=== PATIENT | female | born 1975 | race Caucasian/White ===

== ENCOUNTER 2017-11-17 08:39 | Inpatient (IN) | payer BC ==
[~2017-11-17] VITALS: Ht 172.7 cm; Wt 112.6 kg
[2017-11-17] MEDS ORDERED: IV NORMAL SALINE 1,000ML 1,000 ML IV SCH (08:54)
[2017-11-17 09:30] LABS: BASO % 0 % (0-3); EOS # 0.2 x10^3/uL (0.0-0.7); EOS % 1 % (0-3); HEMATOCRIT 45.6 % (36.0-47.0); HEMOGLOBIN 15.6 g/dL (12.0-15.5); LYMPH # 1.5 x10^3/uL (1.0-4.8); LYMPH % 8 % (24-48); MEAN CORPUSCULAR HEMOGLOBIN 31 pg (25-35); MEAN CORPUSCULAR HGB CONC 34 g/dL (31-37); MEAN CORPUSCULAR VOLUME 91 fL (79-100); MONO # 1.2 x10^3/uL (0.0-1.1); MONO % 7 % (0-9); NEUT # 14.7 x10^3uL (1.8-7.7); NEUT % 83 % (31-73); PLATELET COUNT 269 x10^3/uL (140-400); RED BLOOD COUNT 5.01 x10^6/uL (3.50-5.40); RED CELL DISTRIBUTION WIDTH 12.3 % (11.5-14.5); WHITE BLOOD COUNT 17.6 x10^3/uL (4.0-11.0)
[2017-11-17] MEDS ORDERED: ONDANSETRON PF 4 MG/2 ML VIAL. IV ONE (09:30)
[2017-11-17 09:44] LABS: ALBUMIN 3.9 g/dL (3.4-5.0); ALBUMIN/GLOBULIN RATIO 0.8 (1.0-1.7); CALCIUM 9.8 mg/dL (8.5-10.1); GFR 61.4; POTASSIUM 3.5 mmol/L (3.5-5.1); TOTAL BILIRUBIN 0.7 mg/dL (0.2-1.0); TOTAL PROTEIN 8.5 g/dL (6.4-8.2)
--- NOTE | 2017-11-17 10:13 | PHYS DOC ---
Past History Past Medical History: Anxiety, Depression Past Surgical History: Other Smoking: Non-smoker Alcohol Use: None Drug Use: None Adult General Chief Complaint Chief Complaint: ABDOMINAL PAIN HPI HPI 42-year-old female patient presents with complaining of left upper quadrant pain and nausea and vomiting. Patient complaining of intermittent episodes of nausea for the last 4 days and left upper quadrant sharp pain and generalized abdominal cramping pain since yesterday with 6 episodes of vomiting. Patient denies fever, diarrhea, urinary symptom except for decrease of urine output. Patient is currently taking IVF without taking any medication currently. Patient was changed from Zoloft to Prozac 1 week ago and has change of her job with increasing of anxiety. Patient denies fever, sick contact, chest pain and shortness of breath. Her LMP was 4 days ago. Review of Systems Review of Systems Constitutional: Denies fever or chills [] Eyes: Denies change in visual acuity, redness, or eye pain [] HENT: Denies nasal congestion or sore throat [] Respiratory: Denies cough or shortness of breath [] Cardiovascular: No additional information not addressed in HPI [] GI: Reports abdominal pain, nausea, vomiting, denies bloody stools or diarrhea [ ] : Denies dysuria or hematuria [] Musculoskeletal: Denies back pain or joint pain [] Integument: Denies rash or skin lesions [] Neurologic: Denies headache, focal weakness or sensory changes [] Endocrine: Denies polyuria or polydipsia [] All other systems were reviewed and found to be within normal limits, except as documented in this note. Current Medications Current Medications Current Medications Medications (Trade) Dose Ordered Sig/Kassie Start Time Stop Time Status Last Admin Dose Admin Fentanyl Citrate (Fentanyl 2ml Vial) 50 mcg 1X ONCE 11/17/17 09:45 11/17/17 09:46 DC 11/17/17 10:02 50 MCG Ondansetron HCl (Zofran) 4 mg 1X ONCE 11/17/17 09:30 11/17/17 09:31 DC 11/17/17 09:27 4 MG Sodium Chloride 1,000 ml @ 1,000 mls/hr Q1H 11/17/17 08:54 11/17/17 09:53 DC 11/17/17 09:28 1,000 MLS/HR Allergies Allergies Allergies Coded Allergies Type Severity Reaction Last Updated Verified Sulfa (Sulfonamide Antibiotics) Allergy Unknown 11/17/17 Yes aspirin Allergy Unknown 11/17/17 Yes Physical Exam Physical Exam Constitutional: Well developed, well nourished, mild distress, non-toxic appearance. [] HENT: Normocephalic, atraumatic, oropharynx dry, no oral exudates, nose normal. [] Eyes: PERRLA, EOMI, conjunctiva normal, no discharge. [] Neck: Normal range of motion, no tenderness, supple, no stridor. [] Cardiovascular:Heart rate regular rhythm, no murmur [] Lungs & Thorax: Bilateral breath sounds clear to auscultation [] Abdomen: Bowel sounds normal, soft, left upper quadrant guarding without tenderness, no masses, no pulsatile masses. [] Skin: Warm, dry, no erythema, no rash. [] Back: No tenderness, no CVA tenderness. [] Extremities: No tenderness, no cyanosis, no clubbing, ROM intact, no edema. [] Neurologic: Alert and oriented X 3, normal motor function, normal sensory function, no focal deficits noted. [] Psychologic: Affect normal, judgement normal, mood normal. [] Current Patient Data Vital Signs Vital Signs Date Time Temp Pulse Resp B/P (MAP) Pulse Ox O2 Delivery O2 Flow Rate FiO2 11/17/17 10:02 Room Air 11/17/17 08:51 98.3 76 18 98 Lab Results Laboratory Tests Test 11/17/17 09:10 White Blood Count 17.6 x10^3/uL (4.0-11.0) H Red Blood Count 5.01 x10^6/uL (3.50-5.40) Hemoglobin 15.6 g/dL (12.0-15.5) H Hematocrit 45.6 % (36.0-47.0) Mean Corpuscular Volume 91 fL (79-100) Mean Corpuscular Hemoglobin 31 pg (25-35) Mean Corpuscular Hemoglobin Concent 34 g/dL (31-37) Red Cell Distribution Width 12.3 % (11.5-14.5) Platelet Count 269 x10^3/uL (140-400) Neutrophils (%) (Auto) 83 % (31-73) H Lymphocytes (%) (Auto) 8 % (24-48) L Monocytes (%) (Auto) 7 % (0-9) Eosinophils (%) (Auto) 1 % (0-3) Basophils (%) (Auto) 0 % (0-3) Neutrophils # (Auto) 14.7 x10^3uL (1.8-7.7) H Lymphocytes # (Auto) 1.5 x10^3/uL (1.0-4.8) Monocytes # (Auto) 1.2 x10^3/uL (0.0-1.1) H Eosinophils # (Auto) 0.2 x10^3/uL (0.0-0.7) Basophils # (Auto) 0.0 x10^3/uL (0.0-0.2) Platelet Estimate Pending Sodium Level 138 mmol/L (136-145) Potassium Level 3.5 mmol/L (3.5-5.1) Chloride Level 101 mmol/L (98-107) Carbon Dioxide Level 23 mmol/L (21-32) Anion Gap 14 (6-14) Blood Urea Nitrogen 9 mg/dL (7-20) Creatinine 1.0 mg/dL (0.6-1.0) Estimated GFR (Cockcroft-Gault) 61.4 BUN/Creatinine Ratio 9 (6-20) Glucose Level 127 mg/dL (70-99) H Calcium Level 9.8 mg/dL (8.5-10.1) Total Bilirubin 0.7 mg/dL (0.2-1.0) Aspartate Amino Transferase (AST) 25 U/L (15-37) Alanine Aminotransferase (ALT) 34 U/L (14-59) Alkaline Phosphatase 68 U/L (46-116) Total Protein 8.5 g/dL (6.4-8.2) H Albumin 3.9 g/dL (3.4-5.0) Albumin/Globulin Ratio 0.8 (1.0-1.7) L Lipase 851 U/L (73-393) H EKG EKG [] Radiology/Procedures Radiology/Procedures [][address] [address] IMAGING REPORT Signed PATIENT: YASHIRA GUPTA ACCOUNT: [id number] : 1975 LOCATION: ER AGE: 42 SEX: F EXAM STATUS: REG ER ORD. PHYSICIAN: MANOLO DENNIS MD REASON: left upper quadrant pain, spleenic hemorrhage? PROCEDURE: ABDOMEN LTD ABDOMEN LTD Clinical Indication: er doc note ? splenic hemorrhage LUQ pain x's 1 day Comparison: None. TECHNIQUE: Real-time ultrasound imaging of the left upper quadrant of the abdomen is performed. Findings: No free fluid is identified in the left upper quadrant. The spleen measures 11 cm in length, normal. Sonographic sensitivity for detection of trauma is limited. Left kidney length is 10.8 cm. The appearance is normal. No hydronephrosis. IMPRESSION: 1. Spleen size is normal. 2. No hydronephrosis. 3. There is no left upper quadrant free fluid. Electronically signed by: Soto Boland MD (11/17/2017 10:46 AM) [id number] DICTATED AND SIGNED BY: SOTO BOLAND MD DATE: 11/17/17 1041 CC: AMADA LOMAS MD; MANOLO DENNIS MD ~ [place] [address] IMAGING REPORT Signed PATIENT: YASHIRA GUPTA ACCOUNT: [id number] : 1975 LOCATION: ER AGE: 42 SEX: F EXAM STATUS: REG ER ORD. PHYSICIAN: MANOLO DENNIS MD REASON: left upper quadrant and flank pain PROCEDURE: CT ABD PELV W/ IV CONTRST ONLY CT Abdomen and Pelvis With Intravenous Contrast: History: Left upper quadrant pain since previous day. Comparison: None. Technique: After administration of intravenous contrast, 75 mL Omnipaque-300, CT of the abdomen and pelvis was performed. Exposure: One or more of the following individualized dose reduction techniques were utilized for this examination: 1. Automated exposure control 2. Adjustment of the mA and/or kV according to patient size 3. Use of iterative reconstruction technique Findings: Evaluation of enteric structures may be limited by lack of oral contrast. Fatty liver disease is seen. Spleen and bilateral adrenal glands unremarkable. Cholelithiasis is seen. No CT evidence of cholecystitis is identified. Bilateral kidneys are symmetrically. Minimal fat-containing umbilical hernia is seen. No bowel obstruction or inflammation is identified. The appendix is without inflammation. No free air is seen in the abdomen or pelvis. Urinary bladder is unremarkable. Uterus has unremarkable appearance. Variant vascular anatomy is seen with the splenic and hepatic arteries having separate ostia from the aorta. There is inflammatory change involving the tail of the pancreas, compatible with acute pancreatitis. The splenic vein is patent. No pancreatic necrosis or well-formed peripancreatic fluid collections are identified. Impression: 1. Acute tail pancreatitis. 2. Cholelithiasis without CT evidence of cholecystitis. Electronically signed by: Polo Strange MD (11/17/2017 12:07 PM) [place] [id number] DICTATED AND SIGNED BY: POLO STRANGE MD DATE: 11/17/17 1202 CC: AMADA LOMAS MD; MANOLO DENNIS MD ~ Course & Med Decision Making Course & Med Decision Making Pertinent Labs and Imaging studies reviewed. (See chart for details) Evaluation of patient in ER showed 42-year-old female patient with complaining of nausea for 4 days and left upper quadrant and left flank pain with nausea and vomiting since yesterday. Patient had leukocytosis related lipase at 851. CT abdomen and pelvis showed pancreatitis in tail of pancreas with cholelithiasis. Dr. Ling was informed at 1245 and agreed with plan of admitting the patient with diagnosis of acute pancreatitis. Patient required several doses of fentanyl while she was in ER. Dragon Disclaimer Dragon Disclaimer This electronic medical record was generated, in whole or in part, using a voice recognition dictation system. Departure Departure: Impression: Primary Impression: Acute pancreatitis Additional Impressions: Cholelithiasis Left upper quadrant pain Disposition: ADMITTED INPATIENT (at 1235) Admitting Physician: Other (Dr Ling) Condition: IMPROVED Referrals: AMADA LOMAS MD (PCP) Problem Qualifiers MANOLO DENNIS MD Nov 17, 2017 10:13
--- NOTE | 2017-11-17 10:50 | RAD ---
ABDOMEN LTD Clinical Indication: er doc note ? splenic hemorrhage LUQ pain x's 1 day Comparison: None. TECHNIQUE: Real-time ultrasound imaging of the left upper quadrant of the abdomen is performed. Findings: No free fluid is identified in the left upper quadrant. The spleen measures 11 cm in length, normal. Sonographic sensitivity for detection of trauma is limited. Left kidney length is 10.8 cm. The appearance is normal. No hydronephrosis. IMPRESSION: 1. Spleen size is normal. 2. No hydronephrosis. 3. There is no left upper quadrant free fluid. Electronically signed by: Soto Boland MD (11/17/2017 10:46 AM) [id number]
[2017-11-17 10:52] LABS: % EOS 1 % (0-5); % LYMPHS 9 % (24-48); % MONOS 5 % (0-10); % SEGS 83 % (35-66); PLT ESTIMATE ADEQUATE (ADEQUATE); TOXIC GRANULATION SLIGHT; TOXIC VACUOLATION SLIGHT
[2017-11-17 11:42] LABS: BACTERIA,URINE 0 /HPF (0-FEW); BILIRUBIN,URINE NEG (NEG); CLARITY,URINE HAZY; COLOR,URINE AMBER; GLUCOSE,URINE NEG (NEG); NITRITE,URINE NEG (NEG); RBC,URINE 20-40 /HPF (0-2); SQUAMOUS EPITHELIAL CELL,UR FEW /LPF; UROBILINOGEN,URINE 0.2 mg/dL (0.2 mg/dL); WBC,URINE 0 /HPF (0-4)
[2017-11-17] MEDS ORDERED: IOHEXOL 300 MG/ML 75 ML VIAL. IV ONE (12:00)
--- NOTE | 2017-11-17 12:11 | RAD ---
CT Abdomen and Pelvis With Intravenous Contrast: History: Left upper quadrant pain since previous day. Comparison: None. Technique: After administration of intravenous contrast, 75 mL Omnipaque-300, CT of the abdomen and pelvis was performed. Exposure: One or more of the following individualized dose reduction techniques were utilized for this examination: 1. Automated exposure control 2. Adjustment of the mA and/or kV according to patient size 3. Use of iterative reconstruction technique Findings: Evaluation of enteric structures may be limited by lack of oral contrast. Fatty liver disease is seen. Spleen and bilateral adrenal glands unremarkable. Cholelithiasis is seen. No CT evidence of cholecystitis is identified. Bilateral kidneys are symmetrically. Minimal fat-containing umbilical hernia is seen. No bowel obstruction or inflammation is identified. The appendix is without inflammation. No free air is seen in the abdomen or pelvis. Urinary bladder is unremarkable. Uterus has unremarkable appearance. Variant vascular anatomy is seen with the splenic and hepatic arteries having separate ostia from the aorta. There is inflammatory change involving the tail of the pancreas, compatible with acute pancreatitis. The splenic vein is patent. No pancreatic necrosis or well-formed peripancreatic fluid collections are identified. Impression: 1. Acute tail pancreatitis. 2. Cholelithiasis without CT evidence of cholecystitis. Electronically signed by: Polo Gaytan MD (11/17/2017 12:07 PM) [place] [id number]
[2017-11-17] MEDS ORDERED: ONDANSETRON PF 4 MG/2 ML VIAL. IV PRN (12:45)
[2017-11-17 14:16] VITALS: BP 155/94
[2017-11-17] MEDS: HYDROmorphone PF 1 MG/ML DISP.SYRIN IVP PRN ×4 (14:29→22:31)
[2017-11-17] MEDS: IV NORMAL SALINE 1,000ML 1,000 ML IV SCH ×2 (15:23→19:59)
[2017-11-17] MEDS ORDERED: CRAN1CAP PO (18:01)
[2017-11-17] MEDS ORDERED: LAMO25TA5 PO (18:01)
[2017-11-17] MEDS ORDERED: ALBU2.5V14 NEB (18:01)
[2017-11-17] MEDS ORDERED: CALC-98 PO (18:01)
[2017-11-17] MEDS ORDERED: ALBU8.5H8 INH (18:01)
[2017-11-17] MEDS ORDERED: SPIR100T4 PO (18:01)
[2017-11-17] MEDS ORDERED: FLUT1BLS IH (18:01)
[2017-11-17] MEDS ORDERED: LEVO50TA5 PO (18:01)
[2017-11-17] MEDS ORDERED: LORA10TA3 PO (18:01)
[2017-11-17] MEDS ORDERED: PNV1TABL25 PO (18:01)
[2017-11-17] MEDS ORDERED: BIOT300T PO (18:01)
[2017-11-17] MEDS ORDERED: FLUT9.9S NS (18:01)
[2017-11-17] MEDS ORDERED: FLUO40CA9 PO (18:01)
[2017-11-17] MEDS ORDERED: MONT10TA6 PO (18:01)
[2017-11-17 18:43] VITALS: BP 150/93
[2017-11-17] MEDS ORDERED: ACETAMINOPHEN 500 MG TABLET PO PRN (20:30)
[2017-11-17] MEDS ORDERED: ACETAMINOPHEN 325 MG TABLET PO PRN (20:30)
[2017-11-17 22:07] VITALS: BP 148/79
[2017-11-18] MEDS: HYDROmorphone PF 1 MG/ML DISP.SYRIN IVP PRN ×4 (00:35→06:49)
[2017-11-18] MEDS: IV NORMAL SALINE 1,000ML 1,000 ML IV SCH ×2 (02:32→10:48)
[2017-11-18 05:10] VITALS: BP 166/97
[2017-11-18] MEDS ORDERED: NITROGLYCERIN OINT 1 GM PACKET. TP ONE (05:30)
--- NOTE | 2017-11-18 05:38 | EKG ---
[address] [address] Test Date: 2017-11-18 Test Time: 05:34:16 Pat Name: YASHIRA GUPTA Department: Room: 121 A Gender: F Medical Office Administrator: : 1975 Requested By: EVELINA CERNA Order Number: [id number] Reading MD: Jermain Ceballos MD Measurements Intervals [place] Rate: 91 P: 13 TX: 136 QRS: 55 QRSD: 80 T: 39 QT: 356 QTc: 440 Interpretive Statements SINUS RHYTHM Electronically Signed On 11-20-2017 10:38:16 CDT by Jermain Ceballos MD
[2017-11-18 06:30] LABS: BASO # 0.1 x10^3/uL (0.0-0.2); BASO % 0 % (0-3); EOS # 0.3 x10^3/uL (0.0-0.7); EOS % 1 % (0-3); HEMATOCRIT 41.7 % (36.0-47.0); HEMOGLOBIN 14.4 g/dL (12.0-15.5); LYMPH # 1.2 x10^3/uL (1.0-4.8); LYMPH % 6 % (24-48); MEAN CORPUSCULAR HEMOGLOBIN 31 pg (25-35); MEAN CORPUSCULAR HGB CONC 35 g/dL (31-37); MEAN CORPUSCULAR VOLUME 91 fL (79-100); MONO # 1.8 x10^3/uL (0.0-1.1); MONO % 8 % (0-9); NEUT # 19.3 x10^3uL (1.8-7.7); NEUT % 85 % (31-73); PLATELET COUNT 233 x10^3/uL (140-400); RED CELL DISTRIBUTION WIDTH 12.3 % (11.5-14.5); WHITE BLOOD COUNT 22.7 x10^3/uL (4.0-11.0)
[2017-11-18 07:15] LABS: ALBUMIN 3.4 g/dL (3.4-5.0); ALBUMIN/GLOBULIN RATIO 0.9 (1.0-1.7); CALCIUM 8.7 mg/dL (8.5-10.1); CREATININE 0.8 mg/dL (0.6-1.0); GFR 79.4; POTASSIUM 3.9 mmol/L (3.5-5.1); TOTAL BILIRUBIN 0.7 mg/dL (0.2-1.0); TOTAL PROTEIN 7.1 g/dL (6.4-8.2)
[2017-11-18] MEDS: FLUoxetine HCL 20 MG CAPSULE PO SCH (08:55)
[2017-11-18 10:36] VITALS: BP 141/79
[2017-11-18] MEDS: HYDROmorphone PF 1 MG/ML DISP.SYRIN IV PRN ×2 (10:48→12:57)
--- NOTE | 2017-11-18 11:30 | PDOC1 ---
History of Present Illness History of Present Illness Patient is a 42-year-old female who came to the emergency department complaining of abdominal pain. Patient states that for the past 4 days she's had intermittent nausea and fairly constant left upper quadrant pain. The pain increased in severity prior to ED evaluation patient rated it 8 out of 10 achy, she has 6 episodes of nonbloody emesis and a few loose watery stools. She denied any travel or bad food exposure, no fever chills or myalgias. No symptoms with urination and no chest pain or trouble breathing. She sees a fertility specialist at and is on fertility medications, she was also changed from Zoloft to Prozac one week ago. Her white blood cell count in the emergency department was 17.6 on the day of evaluation it had increased to 22.7. Amylase was 127 in the emergency department improved to 54 today, lipase 851 improved to 224. She developed a spread of her left sided abdominal pain up into the left side of her chest in the night and to be on the safe side and EKG and cardiac enzymes were ordered. EKG revealed no acute ischemic changes, and as of this dictation cardiac enzymes are negative 2. Left upper quadrant ultrasound revealed no acute findings, CT of the abdomen and pelvis with IV contrast revealed 1. Acute tail pancreatitis. 2. Cholelithiasis without CT evidence of cholecystitis. She was admitted to the medical floor for pain control, IV fluids, and bowel rest. On evaluation today her labs had improved as above. She's sitting up in the bed talking with her mom and spouse and appears to be in no apparent distress. She says that the left upper quadrant and left-sided chest discomfort is still present and that the pain medications (Dilaudid 0.4 mg IV every 2 hours when necessary) work for about an hour and then her pain symptoms return. Currently she is rating it at its worst 5/10. She denies any new or worsening symptoms and is expressing hunger. She is ambulatory and very anxious how this hospitalization might affect her in vitro fertilization plan for December 08. Past medical history: Anxiety, depression, infertility Past surgical history: Negative Social history: Lives at home with her spouse no children, denies alcohol tobacco or illicit use Chief Complaint: ABDOMINAL PAIN Allergies: Coded Allergies: Sulfa (Sulfonamide Antibiotics) (Verified Allergy, Unknown, 11/17/17) aspirin (Verified Allergy, Unknown, 11/17/17) Review of Systems Review Of Systems Fourteen system , review of systems has been reviewed. See HPI for pertinent positives and negative responses, other love all other systems are negative, non pertinent or non contributory Medications Current Medications Sodium Chloride 1,000 ml @ 1,000 mls/hr Q1H IV Last administered on 11/17/17 09:28; Start 11/17/17 at 08:54; Stop 11/17/17 at 09:53; Status DC Ondansetron HCl (Zofran) 4 mg 1X ONCE IV Last administered on 11/17/17at 09:27 ; Start 11/17/17 at 09:30; Stop 11/17/17 at 09:31; Status DC Fentanyl Citrate (Fentanyl 2ml Vial) 50 mcg 1X ONCE IV Last administered on at 10:02; Start 11/17/17 at 09:45; Stop 11/17/17 at 09:46; Status DC Iohexol (Omnipaque 300 Mg/ml) 75 ml 1X ONCE IV Last administered on 11/17/17at 11:47; Start 11/17/17 at 12:00; Stop 11/17/17 at 12:01; Status DC Fentanyl Citrate (Fentanyl 2ml Vial) 50 mcg 1X ONCE IV Last administered on at 11:53; Start 11/17/17 at 12:00; Stop 11/17/17 at 12:01; Status DC Ondansetron HCl (Zofran) 4 mg PRN Q4HRS PRN IV NAUSEA/VOMITING; Start 11/17/17 at 12:45; Stop 11/18/17 at 12:44 Sodium Chloride 1,000 ml @ 150 mls/hr Q6H40M IV Last administered on at 10:48; Start 11/17/17 at 12:35; Stop 11/18/17 at 12:34 Fentanyl Citrate (Fentanyl 2ml Vial) 50 mcg 1X ONCE IV ; Start 11/17/17 at 13: 00; Stop 11/17/17 at 13:43; Status DC Hydromorphone HCl (Dilaudid) 0.4 mg PRN Q4HRS PRN IVP PAIN Last administered on 11/17/17at 18:30; Start 11/17/17 at 14:30; Stop 11/17/17 at 19:31; Status DC Fluoxetine HCl (PROzac) 40 mg DAILY PO Last administered on 11/18/17at 08:55; Start 11/18/17 at 09:00 Hydromorphone HCl (Dilaudid) 0.4 mg PRN Q2HR PRN IVP PAIN Last administered on 11/18/17at 06:49; Start 11/17/17 at 19:45; Stop 11/18/17 at 10:27; Status DC Acetaminophen (Tylenol) 650 mg PRN Q6HRS PRN PO PAIN / TEMP; Start 11/17/17 at 20:30; Stop 11/17/17 at 20:30; Status DC Acetaminophen (Tylenol) 650 mg PRN Q6HRS PRN PO PAIN / TEMP; Start 11/17/17 at 20:30 Nitroglycerin (Nitro-Bid Oint) 0.5 inch 1X ONCE TP Last administered on at 05:07; Start 11/18/17 at 05:30; Stop 11/18/17 at 05:31; Status DC Hydromorphone HCl (Dilaudid) 1 mg PRN Q2HR PRN IV PAIN Last administered on at 10:48; Start 11/18/17 at 10:30 Active Scripts Active Reported Breo Ellipta 200-25 Mcg INH (Fluticasone/Vilanterol) 1 Each Blst.w.dev 1 Puff IH DAILY Tablet (Pnv Cmb#95/Ferrous Fumarate/Fa) 1 Each Tablet 1 Tab PO DAILY Spironolactone 100 Mg Tablet 1 Tab PO DAILY Proair Hfa Inhaler (Albuterol Sulfate) 8.5 Gm Hfa.aer.ad 1 Puff INH PRN Q6HRS PRN Singulair Tablet (Montelukast Sodium) 10 Mg Tablet 10 Mg PO HS Loratadine 10 Mg Tablet 1 Tab PO DAILY Levothyroxine Sodium 50 Mcg Tablet 1 Tab PO DAILY Lamictal (Lamotrigine) 25 Mg Tablet 2 Tab PO DAILY Flonase Allergy Relief (Fluticasone Propionate) 9.9 Ml [place].susp 2 Sprays NS DAILY Cranberry Concentrate Softgel (Cranberry Conc/Ascorbic Acid) 1 Each Capsule 1 Each PO DAILY Calcium + Vitamin D Tablet (Calcium Carbonate/Vitamin D3) 1 Each Tablet 1 Each PO DAILY Biotin 300 Mcg Tablet 500 Mcg PO DAILY Albuterol Sulfate Conc Neb Soln (Albuterol Sulfate) 2.5 Mg/0.5 Ml Vial.neb 1 Vial NEB Q6HRS Prozac (Fluoxetine Hcl) 40 Mg Capsule 1 Cap PO DAILY Exam Vital Signs Vital Signs Date Time Temp Pulse Resp B/P (MAP) Pulse Ox O2 Delivery O2 Flow Rate FiO2 11/18/17 10:48 20 95 Room Air 11/18/17 10:36 98.8 89 141/79 (99) General Appearance: Alert, Oriented X3, No acute distress HEENT: Atraumatic, PERRLA, EOMI, Mucous membr. moist/pink Respiratory: Clear to auscultation, Normal air movement Heart: Normal S1, Normal S2, No murmurs Abdominal: Normal bowel sounds, Soft (nondistended, left upper quadrant tenderness with some guarding no rebound, no skin changes/[place] sign) Extremities: No clubbing, No cyanosis (2+ nonpitting lower extremity edema reportedly unchanged from baseline) Skin: No rashes, No breakdown Neuro: Normal speech, Strength at 5/5 X4 ext, Sensation intact, Cranial nerves 3-12 NL Psych/Mental Status: Mental status NL, Mood NL Assessment/Plan Assessment/Plan Acute pancreatitis: Enzymes improving Leukocytosis Cholelithiasis without cholecystitis She's been taking her Prozac by mouth without any nausea or vomiting. Will introduce clear liquids slowly today, and increased Dilaudid from 0.4-1 mg every 2 hours as needed. If she is tolerating by mouth's and her pain is controlled will consider changing over to by mouth Dilaudid later today in anticipation of possible discharge home tomorrow. Continue IV hydration. COURSE Allergies Coded Allergies Type Severity Reaction Last Updated Verified Sulfa (Sulfonamide Antibiotics) Allergy Unknown 11/17/17 Yes aspirin Allergy Unknown 11/17/17 Yes Laboratory Tests Test 11/18/17 06:15 11/18/17 10:05 White Blood Count 22.7 x10^3/uL (4.0-11.0) Red Blood Count 4.60 x10^6/uL (3.50-5.40) Hemoglobin 14.4 g/dL (12.0-15.5) Hematocrit 41.7 % (36.0-47.0) Mean Corpuscular Volume 91 fL (79-100) Mean Corpuscular Hemoglobin 31 pg (25-35) Mean Corpuscular Hemoglobin Concent 35 g/dL (31-37) Red Cell Distribution Width 12.3 % (11.5-14.5) Platelet Count 233 x10^3/uL (140-400) Neutrophils (%) (Auto) 85 % (31-73) Lymphocytes (%) (Auto) 6 % (24-48) Monocytes (%) (Auto) 8 % (0-9) Eosinophils (%) (Auto) 1 % (0-3) Basophils (%) (Auto) 0 % (0-3) Neutrophils # (Auto) 19.3 x10^3uL (1.8-7.7) Lymphocytes # (Auto) 1.2 x10^3/uL (1.0-4.8) Monocytes # (Auto) 1.8 x10^3/uL (0.0-1.1) Eosinophils # (Auto) 0.3 x10^3/uL (0.0-0.7) Basophils # (Auto) 0.1 x10^3/uL (0.0-0.2) Sodium Level 136 mmol/L (136-145) Potassium Level 3.9 mmol/L (3.5-5.1) Chloride Level 101 mmol/L (98-107) Carbon Dioxide Level 19 mmol/L (21-32) Anion Gap 16 (6-14) Blood Urea Nitrogen 7 mg/dL (7-20) Creatinine 0.8 mg/dL (0.6-1.0) Estimated GFR (Cockcroft-Gault) 79.4 BUN/Creatinine Ratio 9 (6-20) Glucose Level 128 mg/dL (70-99) Calcium Level 8.7 mg/dL (8.5-10.1) Total Bilirubin 0.7 mg/dL (0.2-1.0) Aspartate Amino Transf (AST/SGOT) 19 U/L (15-37) Alanine Aminotransferase (ALT/SGPT) 25 U/L (14-59) Alkaline Phosphatase 62 U/L (46-116) Creatine Kinase 47 U/L (26-192) Creatine Kinase MB (Mass) < 0.5 ng/mL (0.0-3.6) Creatine Kinase MB Relative Index 1.1 % (0-4) Troponin I Quantitative < 0.017 ng/mL (0-0.055) < 0.017 ng/mL (0-0.055) Total Protein 7.1 g/dL (6.4-8.2) Albumin 3.4 g/dL (3.4-5.0) Albumin/Globulin Ratio 0.9 (1.0-1.7) Amylase Level 54 U/L (25-115) Lipase 224 U/L (73-393) Current Medications Medications (Trade) Dose Ordered Sig/Kassie Route PRN Reason Start Time Stop Time Status Last Admin Dose Admin Iohexol (Omnipaque 300 Mg/ml) 75 ml 1X ONCE IV 11/17/17 12:00 11/17/17 12:01 DC 11/17/17 11:47 Fentanyl Citrate (Fentanyl 2ml Vial) 50 mcg 1X ONCE IV 11/17/17 12:00 11/17/17 12:01 DC 11/17/17 11:53 Ondansetron HCl (Zofran) 4 mg PRN Q4HRS PRN IV NAUSEA/VOMITING 11/17/17 12:45 11/18/17 12:44 Sodium Chloride 1,000 ml @ 150 mls/hr Q6H40M IV 11/17/17 12:35 11/18/17 12:34 11/18/17 10:48 Fentanyl Citrate (Fentanyl 2ml Vial) 50 mcg 1X ONCE IV 11/17/17 13:00 11/17/17 13:43 DC Hydromorphone HCl (Dilaudid) 0.4 mg PRN Q4HRS PRN IVP PAIN 11/17/17 14:30 11/17/17 19:31 DC 11/17/17 18:30 Fluoxetine HCl (PROzac) 40 mg DAILY PO 11/18/17 09:00 11/18/17 08:55 Hydromorphone HCl (Dilaudid) 0.4 mg PRN Q2HR PRN IVP PAIN 11/17/17 19:45 11/18/17 10:27 DC 11/18/17 06:49 Acetaminophen (Tylenol) 650 mg PRN Q6HRS PRN PO PAIN / TEMP 11/17/17 20:30 11/17/17 20:30 DC Acetaminophen (Tylenol) 650 mg PRN Q6HRS PRN PO PAIN / TEMP 11/17/17 20:30 Nitroglycerin (Nitro-Bid Oint) 0.5 inch 1X ONCE TP 11/18/17 05:30 11/18/17 05:31 DC 11/18/17 05:07 Hydromorphone HCl (Dilaudid) 1 mg PRN Q2HR PRN IV PAIN 11/18/17 10:30 11/18/17 10:48 I & O 11/18/17 00:00 Intake Total 1462.47 ml Balance 1462.47 ml Orders Procedure Category Date Status Time Ct Abd Pelv W/ Iv CT 11/17/17 Resulted Contrst Only 11:25 Iohexol 300 Mg/Ml PHA 11/17/17 Complete (Omnipaque 300 Mg/Ml) 12:00 Fentanyl Pf (Fentanyl PHA 11/17/17 Complete 2ml Vial) 12:00 [place] Order ADT 11/17/17 Transmitted 12:35 Code Status CODE 11/17/17 Transmitted 12:35 Vital Signs, Per RAPHAEL 11/17/17 In Process Protocol 12:35 Ondansetron Pf PHA 11/17/17 In Process (Zofran) 12:45 Iv Normal Saline PHA 11/17/17 In Process 1,000ml (Iv Sodium 12:35 Fentanyl Pf (Fentanyl PHA 11/17/17 Complete 2ml Vial) 13:00 Admit Orders ADT 11/17/17 Transmitted Hydromorphone Pf PHA 11/17/17 Complete (Dilaudid) 14:30 Cbc W Autodiff LAB 11/18/17 Complete 05:00 Comprehensive LAB 11/18/17 Complete Metabolic Panel 05:00 Amylase LAB 11/18/17 Complete 05:00 Lipase LAB 11/18/17 Complete 05:00 Amylase LAB 11/17/17 Complete 14:18 Nothing By Mouth DIET 11/17/17 Transmitted Dinner Notify Provider No RAPHAEL 11/17/17 In Process Vte Prophyl 17:45 Admission Screening CONS 11/17/17 Transmitted 18:23 Cdif W/ Epi Pcr LAB 11/17/17 Uncollected 18:23 Fluoxetine Hcl PHA 11/18/17 In Process (Prozac) 09:00 Hydromorphone Pf PHA 11/17/17 Complete (Dilaudid) 19:45 Acetaminophen PHA 11/17/17 Complete (Tylenol) 20:30 Acetaminophen PHA 11/17/17 In Process (Tylenol) 20:30 12 Lead Ekg EKG 11/18/17 Complete 04:50 Troponin I LAB 11/18/17 Complete 04:51 Troponin I LAB 11/18/17 Complete 09:50 Troponin I LAB 11/18/17 Logged 13:50 Nitroglycerin Oint PHA 11/18/17 Complete (Nitro-Bid Oint) 05:30 Creatine Kinase LAB 11/18/17 Complete 04:57 Ckmb Isoenzymes LAB 11/18/17 Complete 04:57 Hydromorphone Pf PHA 11/18/17 In Process (Dilaudid) 10:30 Vital Signs Date Time Temp Pulse Resp B/P (MAP) Pulse Ox O2 Delivery O2 Flow Rate FiO2 11/18/17 10:48 20 95 Room Air 11/18/17 10:36 98.8 89 141/79 (99) EVELINA CERNA DO Nov 18, 2017 11:30
[2017-11-18] MEDS ORDERED: METHYL SALICYLATE/MENTHOL TOPICAL OINTMENT 29GM TUBE. TP PRN (14:30)
[2017-11-18] MEDS: HYDROmorphone 2 MG TABLET PO PRN ×3 (15:21→23:55)
[2017-11-18 16:07] VITALS: BP 156/90
[2017-11-18 19:15] VITALS: BP 137/98
[2017-11-18 22:38] VITALS: BP 161/93
[2017-11-19] MEDS: HYDROmorphone 2 MG TABLET PO PRN ×3 (04:32→13:34)
[2017-11-19 05:24] VITALS: BP 164/99
[2017-11-19] MEDS: FLUoxetine HCL 20 MG CAPSULE PO SCH (09:05)
[2017-11-19 10:59] VITALS: BP 151/97
--- NOTE | 2017-11-19 13:48 | PDOC3 ---
Discharge Summary Visit Information Date of Admission: Nov 17, 2017 Date of Discharge: Nov 19, 2017 Admitting Diagnosis: acute pancreatitis, cholelithiasis, intractable abdomina Final Diagnosis Problems Medical Problems: (1) Acute pancreatitis Status: Acute (2) Cholelithiasis Status: Acute (3) Left upper quadrant pain Status: Acute Brief Hospital Course Allergies Allergies Coded Allergies Type Severity Reaction Last Updated Verified Sulfa (Sulfonamide Antibiotics) Allergy Intermediate 11/18/17 Yes aspirin Allergy Intermediate 11/18/17 Yes Vital Signs Vital Signs Date Time Temp Pulse Resp B/P (MAP) Pulse Ox O2 Delivery O2 Flow Rate FiO2 11/19/17 13:34 96 Room Air 11/19/17 10:59 98.2 101 20 151/97 (115) Lab Results Laboratory Tests Test 11/18/17 06:15 11/18/17 10:05 11/18/17 13:50 White Blood Count 22.7 x10^3/uL (4.0-11.0) Red Blood Count 4.60 x10^6/uL (3.50-5.40) Hemoglobin 14.4 g/dL (12.0-15.5) Hematocrit 41.7 % (36.0-47.0) Mean Corpuscular Volume 91 fL (79-100) Mean Corpuscular Hemoglobin 31 pg (25-35) Mean Corpuscular Hemoglobin Concent 35 g/dL (31-37) Red Cell Distribution Width 12.3 % (11.5-14.5) Platelet Count 233 x10^3/uL (140-400) Neutrophils (%) (Auto) 85 % (31-73) Lymphocytes (%) (Auto) 6 % (24-48) Monocytes (%) (Auto) 8 % (0-9) Eosinophils (%) (Auto) 1 % (0-3) Basophils (%) (Auto) 0 % (0-3) Neutrophils # (Auto) 19.3 x10^3uL (1.8-7.7) Lymphocytes # (Auto) 1.2 x10^3/uL (1.0-4.8) Monocytes # (Auto) 1.8 x10^3/uL (0.0-1.1) Eosinophils # (Auto) 0.3 x10^3/uL (0.0-0.7) Basophils # (Auto) 0.1 x10^3/uL (0.0-0.2) Sodium Level 136 mmol/L (136-145) Potassium Level 3.9 mmol/L (3.5-5.1) Chloride Level 101 mmol/L (98-107) Carbon Dioxide Level 19 mmol/L (21-32) Anion Gap 16 (6-14) Blood Urea Nitrogen 7 mg/dL (7-20) Creatinine 0.8 mg/dL (0.6-1.0) Estimated GFR (Cockcroft-Gault) 79.4 BUN/Creatinine Ratio 9 (6-20) Glucose Level 128 mg/dL (70-99) Calcium Level 8.7 mg/dL (8.5-10.1) Total Bilirubin 0.7 mg/dL (0.2-1.0) Aspartate Amino Transf (AST/SGOT) 19 U/L (15-37) Alanine Aminotransferase (ALT/SGPT) 25 U/L (14-59) Alkaline Phosphatase 62 U/L (46-116) Creatine Kinase 47 U/L (26-192) Creatine Kinase MB (Mass) < 0.5 ng/mL (0.0-3.6) Creatine Kinase MB Relative Index 1.1 % (0-4) Troponin I Quantitative < 0.017 ng/mL (0-0.055) < 0.017 ng/mL (0-0.055) < 0.017 ng/mL (0-0.055) Total Protein 7.1 g/dL (6.4-8.2) Albumin 3.4 g/dL (3.4-5.0) Albumin/Globulin Ratio 0.9 (1.0-1.7) Amylase Level 54 U/L (25-115) Lipase 224 U/L (73-393) Brief Hospital Course Ms. Escamilla is a 42 old female who presented to the emergency department with epigastric pain and vomiting. She was extensively evaluated in the emergency department and found to have acute pancreatitis involving the tail of her pancreas. She was admitted to medical floor for IV hydration, pain and nausea control, and bowel rest. Her enzymes improved with bowel rest, and over the course of her admission she began to tolerate clear liquids and was switched to by mouth Dilaudid with good pain control. I find her today sitting up in bed watching something on her iPhone in no apparent distress. I discussed the possibility of another night of observation however she is requesting discharge home at this point. She has good family support and outpatient follow-up. She' ll be discharged home with Dilaudid 4 mg for pain as well as Zofran ODT for nausea. Advised to stick with clear liquid diet and advance very slowly as tolerated, follow-up with primary care physician in 2-3 days. General: No apparent distress alert and oriented 3 HEENT: Normocephalic atraumatic, PERRLA, EOMI, mucous membranes moist Neck: Supple and nontender Cardiovascular: Normal S1 and S2 no murmur Pulmonary: Lungs are clear bilaterally good air movement Abdomen: Mild persistent left upper quadrant tenderness no rebound or guard, bowel sounds present Extremities: No clubbing cyanosis or edema Discharge Information Dischare Medications Current Medications Sodium Chloride 1,000 ml @ 1,000 mls/hr Q1H IV Last administered on 11/17/17at 09:28; Start 11/17/17 at 08:54; Stop 11/17/17 at 09:53; Status DC Ondansetron HCl (Zofran) 4 mg 1X ONCE IV Last administered on 11/17/17at 09:27 ; Start 11/17/17 at 09:30; Stop 11/17/17 at 09:31; Status DC Fentanyl Citrate (Fentanyl 2ml Vial) 50 mcg 1X ONCE IV Last administered on at 10:02; Start 11/17/17 at 09:45; Stop 11/17/17 at 09:46; Status DC Iohexol (Omnipaque 300 Mg/ml) 75 ml 1X ONCE IV Last administered on 11/17/17at 11:47; Start 11/17/17 at 12:00; Stop 11/17/17 at 12:01; Status DC Fentanyl Citrate (Fentanyl 2ml Vial) 50 mcg 1X ONCE IV Last administered on at 11:53; Start 11/17/17 at 12:00; Stop 11/17/17 at 12:01; Status DC Ondansetron HCl (Zofran) 4 mg PRN Q4HRS PRN IV NAUSEA/VOMITING; Start 11/17/17 at 12:45; Stop 11/18/17 at 12:44; Status DC Sodium Chloride 1,000 ml @ 150 mls/hr Q6H40M IV Last administered on at 10:48; Start 11/17/17 at 12:35; Stop 11/18/17 at 12:34; Status DC Fentanyl Citrate (Fentanyl 2ml Vial) 50 mcg 1X ONCE IV ; Start 11/17/17 at 13: 00; Stop 11/17/17 at 13:43; Status DC Hydromorphone HCl (Dilaudid) 0.4 mg PRN Q4HRS PRN IVP PAIN Last administered on 11/17/17at 18:30; Start 11/17/17 at 14:30; Stop 11/17/17 at 19:31; Status DC Fluoxetine HCl (PROzac) 40 mg DAILY PO Last administered on 11/19/17at 09:05; Start 11/18/17 at 09:00 Hydromorphone HCl (Dilaudid) 0.4 mg PRN Q2HR PRN IVP PAIN Last administered on 11/18/17at 06:49; Start 11/17/17 at 19:45; Stop 11/18/17 at 10:27; Status DC Acetaminophen (Tylenol) 650 mg PRN Q6HRS PRN PO PAIN / TEMP; Start 11/17/17 at 20:30; Stop 11/17/17 at 20:30; Status DC Acetaminophen (Tylenol) 650 mg PRN Q6HRS PRN PO PAIN / TEMP; Start 11/17/17 at 20:30 Nitroglycerin (Nitro-Bid Oint) 0.5 inch 1X ONCE TP Last administered on at 05:07; Start 11/18/17 at 05:30; Stop 11/18/17 at 05:31; Status DC Hydromorphone HCl (Dilaudid) 1 mg PRN Q2HR PRN IV PAIN Last administered on at 12:57; Start 11/18/17 at 10:30; Stop 11/18/17 at 14:33; Status DC Hydromorphone HCl (Dilaudid) 4 mg PRN Q4HRS PRN PO PAIN Last administered on at 13:34; Start 11/18/17 at 14:30 Multi-Ingredient Ointment (Analgesic [place]) 1 kim PRN QID PRN TP MUSCLE PAIN; Start 11/18/17 at 14:30 Active Scripts Active Reported Breo Ellipta 200-25 Mcg INH (Fluticasone/Vilanterol) 1 Each Blst.w.dev 1 Puff IH DAILY Tablet (Pnv Cmb#95/Ferrous Fumarate/Fa) 1 Each Tablet 1 Tab PO DAILY Spironolactone 100 Mg Tablet 1 Tab PO DAILY Proair Hfa Inhaler (Albuterol Sulfate) 8.5 Gm Hfa.aer.ad 1 Puff INH PRN Q6HRS PRN Singulair Tablet (Montelukast Sodium) 10 Mg Tablet 10 Mg PO HS Loratadine 10 Mg Tablet 1 Tab PO DAILY Levothyroxine Sodium 50 Mcg Tablet 1 Tab PO DAILY Lamictal (Lamotrigine) 25 Mg Tablet 2 Tab PO DAILY Flonase Allergy Relief (Fluticasone Propionate) 9.9 Ml [place].susp 2 Sprays NS DAILY Cranberry Concentrate Softgel (Cranberry Conc/Ascorbic Acid) 1 Each Capsule 1 Each PO DAILY Calcium + Vitamin D Tablet (Calcium Carbonate/Vitamin D3) 1 Each Tablet 1 Each PO DAILY Biotin 300 Mcg Tablet 500 Mcg PO DAILY Albuterol Sulfate Conc Neb Soln (Albuterol Sulfate) 2.5 Mg/0.5 Ml Vial.neb 1 Vial NEB Q6HRS Prozac (Fluoxetine Hcl) 40 Mg Capsule 1 Cap PO DAILY EVELINA CERNA DO Nov 19, 2017 13:48
[2017-11-19] MEDS ORDERED: HYDR2TAB31 PO (14:14)
== END 2017-11-19 14:45 | disposition home or self-care (01) | DRG 444 ==
LOC: ER 08:39 → 1 SOUTH 13:37
PROVIDERS: ADMIT Neuromusculoskeletal Medicine & OMM; ATTEND Neuromusculoskeletal Medicine & OMM
DX: K80.20 Calculus of gallbladder without cholecystitis without obstruction (principal); K85.90 Acute pancreatitis without necrosis or infection, unspecified; F41.9 Anxiety disorder, unspecified; F32.9 Major depressive disorder, single episode, unspecified; D72.829 Elevated white blood cell count, unspecified; Z79.899 Other long term (current) drug therapy; Z88.6 Allergy status to analgesic agent; Z88.2 Allergy status to sulfonamides
CPT/HCPCS: 36415; 74177; 76705; 80053; 81001; 81025; 82150; 82553; 83690; 84484; 85007; 85025; 93005; 96361; 96374; 96375; J1170; J2405; J3010; Q9967; 99285-25; J7030